=== PATIENT | male | born 2005 | race Two or more races ===

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

== ENCOUNTER 2023-07-29 18:42 | Emergency (ER) | payer MEDICAID ==
[~2023-07-29] VITALS: Ht 182.9 cm; Wt 66.8 kg
[2023-07-29] MEDS ORDERED: IBUP1TAB5 PO (20:53)
[2023-07-29] MEDS ORDERED: DexAMETHasone SOD PHOS 10MG/1ML VIAL INJ IM ONE (21:00)
[2023-07-29] MEDS ORDERED: HYDROcodone-ACET 5/325MG TAB PO ONE (21:00)
[2023-07-29 22:09] VITALS: BP 114/54; PULSE 67; RESP 18; TEMP 98.3; O2SAT 98
== END 2023-07-29 23:17 | disposition home or self-care (01) ==
LOC: ER 18:42
DX: S83.8X1A Sprain of other specified parts of right knee, initial encounter (principal); M25.461 Effusion, right knee; X50.1XXA Overexertion from prolonged static or awkward postures, initial encounter; Y93.89 Activity, other specified; Y92.89 Other specified places as the place of occurrence of the external cause; Y99.8 Other external cause status
CPT/HCPCS: 29505; 73562; 96372; 99283; J1100